=== PATIENT | male | born 1955 | race Caucasian/White ===

== ENCOUNTER 2017-09-27 08:01 | Emergency (ER) | payer OTHER ==
[~2017-09-27] VITALS: Ht 167.6 cm; Wt 94.0 kg
[2017-09-27] MEDS ORDERED: METF500T4 PO (08:32)
[2017-09-27] MEDS ORDERED: LOSA50TA6 PO (08:32)
[2017-09-27] MEDS ORDERED: GLIM4TAB2 PO (08:32)
[2017-09-27] MEDS ORDERED: ATOR40TA78 PO (08:32)
[2017-09-27] MEDS ORDERED: PHENYLEPHRINE NASAL 1%, 15ML SPRAY ONE (08:37)
[2017-09-27] MEDS ORDERED: LIDOCAINE-MPF 1%, 5ML ONE (08:37)
[2017-09-27 09:57] VITALS: BP 132/97
== END 2017-09-27 10:00 | disposition home or self-care (01) ==
LOC: ED 09:00
DX: R04.0 Epistaxis (principal); Z87.891 Personal history of nicotine dependence
CPT/HCPCS: 30901; 99284

== ENCOUNTER 2018-07-13 07:49 | Inpatient (IN) | payer OTHER ==
[~2018-07-13] VITALS: Ht 167.6 cm; Wt 98.0 kg
[~2018-07-13 07:49] MED LIST: ATOR40TA78 PO; GLIM4TAB2 PO; LOSA50TA14 PO; METF500T17 PO
--- NOTE | 2018-07-13 07:58 | NUR ---
PT PRESENTED TO ED D/T LLQ ABD PAIN SINCE TUESDAY. HX OF KIDNEY STONES. PT DENIES PAINFUL URINATION AT THIS TIME. DENIES N/V/D.
[2018-07-13 08:25] LABS: MICROSCOPIC AUTO
[2018-07-13 08:27] LABS: CULTURE INDICATED? NO
--- NOTE | 2018-07-13 08:28 | NUR ---
PT BEING TRANSPORED TO CT SCAN.
[2018-07-13 08:29] LABS: BASOPHILS # (AUTO) 0.03 x10^3/uL (0-0.1); BASOPHILS % (AUTO) 0 % (0-1); EOSINOPHILS # (AUTO) 0.19 x10^3/uL (0-0.4); EOSINOPHILS % (AUTO) 2 % (1-7); LYMPHOCYTES # (AUTO) 1.65 x10^3/uL (1-3.4); LYMPHOCYTES % (AUTO) 20 % (22-44); MD NO; MEAN CORPUSCULAR HEMOGLOBIN 29.9 pg (27.5-34.5); MEAN CORPUSCULAR HGB CONC 33.7 g/dL (33.2-36.2); MEAN CORPUSCULAR VOLUME 88.8 fL (81-97); MEAN PLATELET VOLUME 8.2 fL (7.4-10.4); MONOCYTES % (AUTO) 7 % (2-9); NEUTROPHILS # (AUTO) 5.82 x10^3/uL (1.8-6.8); NEUTROPHILS % (AUTO) 70 % (42-75); PLATELET COUNT 308 x10^3/uL (130-400); RED BLOOD COUNT 5.62 x10^6/uL (4.38-5.82); RED CELL DISTRIBUTION WIDTH 13.7 % (9.4-14.8)
[2018-07-13 08:36] LABS: ALBUMIN 4.5 g/dL (3.4-5.0); ANION GAP 7 mmol/L (5-15); CALCIUM 9.1 mg/dL (8.5-10.1); CHLORIDE 108 mmol/L (98-107); CREATININE 1.06 mg/dL (0.7-1.3)
--- NOTE | 2018-07-13 09:18 | NUR ---
PT RESTING ON [facility]. CT RESULTS PENDING. NO NEEDS AT THIS TIME.
--- NOTE | 2018-07-13 09:49 | NUR ---
REPORT TO ERVIN PORTER TO ASSUME PRIMARY CARE OF PT.
--- NOTE | 2018-07-13 10:05 | NUR ---
PT TO BE ADMITTED. VSS. 3 P'S ADDRESSED. PT COMFORTABLE NOW.
[2018-07-13] MEDS ORDERED: CEFOTETAN PMX 1GM/50ML 50 ML ONE ×2 (10:14→10:28)
[2018-07-13] MEDS ORDERED: ONDANSETRON 2MG/ML, 2ML ONE ×3 (10:24→12:53)
[2018-07-13] MEDS ORDERED: HYDROmorphone 1 MG/ML, 1ML ONE (10:24)
[2018-07-13] MEDS ORDERED: MORPHINE SULFATE 4 MG/ML, 1ML ONE (10:28)
[2018-07-13] MEDS ORDERED: MORPHINE SULFATE 4 MG/ML, 1ML IVPush PRN ×2 (10:30→12:00)
[2018-07-13] MEDS ORDERED: ONDANSETRON 2MG/ML, 2ML IVPush ONE (10:30)
[2018-07-13] MEDS ORDERED: SODIUM CHLORIDE FLUSH 10ML SYR IVF ONE (10:30)
[2018-07-13] MEDS ORDERED: CEFOTETAN PMX 2GM/50ML 50 ML IV ONE (10:30)
[2018-07-13] MEDS ORDERED: BUPIVACAINE/PF-EPI 0.5% 1:200K ONE (10:36)
[2018-07-13] MEDS ORDERED: BUPIVACAINE/PF 0.25% ONE (10:36)
[2018-07-13] MEDS ORDERED: EPINEPHRINE 1 MG/ML, 1ML ONE (10:36)
[2018-07-13] MEDS ORDERED: SODIUM CHLORIDE 0.9% 1,000 ML IV SCH (10:47)
[2018-07-13] MEDS ORDERED: KETOROLAC 30 MG/1 ML IV PRN ×2 (11:00→18:00)
[2018-07-13] MEDS ORDERED: morphine SULFATE 10 MG/ML, 1ML IVPush PRN (11:00)
[2018-07-13] MEDS ORDERED: ACETAMINOPHEN 325 MG TABLET PO PRN ×2 (11:00→12:00)
[2018-07-13] MEDS ORDERED: FENTANYL PF 250 MCG/5ML ONE (11:00)
[2018-07-13] MEDS ORDERED: ONDANSETRON ODT 4 MG PO PRN (11:00)
[2018-07-13] MEDS ORDERED: MIDAZOLAM 1 MG/ML, 2ML ONE (11:00)
[2018-07-13] MEDS ORDERED: ONDANSETRON 2MG/ML, 2ML IVPush PRN (11:00)
[2018-07-13] MEDS ORDERED: DEXAMETHASONE 4 MG/ML, 5ML ONE (11:10)
[2018-07-13] MEDS ORDERED: FENTANYL PF 100 MCG/2ML ONE (11:43)
[2018-07-13] MEDS ORDERED: KETOROLAC 30 MG/1 ML ONE (11:58)
[2018-07-13] MEDS ORDERED: ALBUTEROL SULFATE 2.5 MG/3 ML NPPB PRN (12:00)
[2018-07-13] MEDS ORDERED: HALOPERIDOL 5 MG/ML IV PRN (12:00)
[2018-07-13] MEDS ORDERED: LABETALOL 5MG/ML, 20ML IV PRN (12:00)
[2018-07-13] MEDS ORDERED: hydrALAzine 20 MG/ML, 1ML IV PRN (12:00)
[2018-07-13] MEDS ORDERED: EPHEDRINE 50 MG/ML, 1ML IVPush PRN (12:00)
[2018-07-13] MEDS ORDERED: HYDROmorphone 2 MG/ML, 1ML IVPush PRN (12:00)
[2018-07-13] MEDS ORDERED: MEPERIDINE/PF 25MG/0.5ML IVPush PRN (12:00)
[2018-07-13] MEDS ORDERED: DIAZEPAM 5 MG/ML, 2ML IVPush PRN (12:00)
[2018-07-13] MEDS ORDERED: OXYcodone 5 MG/5 ML ORAL.SOL UDC PO PRN (12:00)
[2018-07-13] MEDS ORDERED: PROMETHAZINE 12.5 MG SUPP PR PRN (12:00)
[2018-07-13] MEDS ORDERED: PROMETHAZINE 25 MG/ML, 1ML IV PRN (12:00)
[2018-07-13] MEDS ORDERED: MIDAZOLAM 1 MG/ML, 2ML IV PRN (12:00)
[2018-07-13] MEDS ORDERED: ONDANSETRON 2MG/ML, 2ML IV PRN ×2 (12:00→15:30)
[2018-07-13] MEDS ORDERED: FENTANYL PF 100 MCG/2ML IV PRN (12:00)
[2018-07-13] MEDS ORDERED: ONDANSETRON ODT 8 MG PO PRN (12:00)
[2018-07-13] MEDS ORDERED: NEOSTIGMINE 1 MG/ML, 10ML ONE (12:01)
[2018-07-13] MEDS ORDERED: PROPOFOL 10 MG/ML, 20ML ONE (12:01)
[2018-07-13] MEDS ORDERED: ROCURONIUM 10MG/ML,5ML ONE (12:01)
[2018-07-13] MEDS ORDERED: GLYCOPYRROLATE 0.4 MG/2 ML, 2ML ONE (12:01)
[2018-07-13] MEDS ORDERED: SUCCINYLCHOLINE 20 MG/ML, 10ML ONE (12:01)
[2018-07-13] MEDS ORDERED: morphine SULFATE 10 MG/ML, 1ML IV PRN (15:30)
[2018-07-13] MEDS ORDERED: POTASSIUM CHLORIDE 20 MEQ in D5%-0.45% NACL 1,000 ML IV SCH (15:30)
[2018-07-13] MEDS ORDERED: DIPHENHYDRAMINE 50 MG/ML, 1ML IV PRN (15:30)
[2018-07-13] MEDS ORDERED: HEPARIN 5,000 UNITS/ML, 1ML SQ SCH (15:30)
[2018-07-13] MEDS ORDERED: DIPHENHYDRAMINE 25 MG CAPSULE PO PRN (15:30)
[2018-07-13] MEDS ORDERED: OXYcodone/APAP 5/325MG TABLET PO PRN (15:30)
[2018-07-13 20:00] VITALS: BP 113/76
[2018-07-13] MEDS: SODIUM CHLORIDE FLUSH 10ML SYR IVF SCH (20:49)
[2018-07-13] MEDS ORDERED: ATORVASTATIN 40 MG TABLET PO SCH (21:00)
[2018-07-14 02:23] VITALS: BP 114/70
[2018-07-14 04:10] VITALS: BP 109/68
[2018-07-14 05:08] LABS: MEAN CORPUSCULAR HEMOGLOBIN 30.7 pg (27.5-34.5); MEAN CORPUSCULAR HGB CONC 34.1 g/dL (33.2-36.2); MEAN CORPUSCULAR VOLUME 90.1 fL (81-97); MEAN PLATELET VOLUME 8.3 fL (7.4-10.4); PLATELET COUNT 280 x10^3/uL (130-400); RED BLOOD COUNT 4.94 x10^6/uL (4.38-5.82); RED CELL DISTRIBUTION WIDTH 13.9 % (9.4-14.8)
[2018-07-14 05:12] LABS: ALBUMIN 3.6 g/dL (3.4-5.0); ANION GAP 5 mmol/L (5-15); CALCIUM 8.1 mg/dL (8.5-10.1); CHLORIDE 107 mmol/L (98-107)
[2018-07-14 05:16] LABS: ALANINE AMINOTRANSFERASE 44 U/L (12-78); ALKALINE PHOSPHATASE 57 U/L (45-117); BILIRUBIN,TOTAL 1.3 mg/dL (0.2-1.0); TOTAL PROTEIN 6.7 g/dL (6.4-8.2)
[2018-07-14 06:01] LABS: BASOPHILS # (AUTO) 0.03 x10^3/uL (0-0.1); BASOPHILS % (AUTO) 0 % (0-1); EOSINOPHILS # (AUTO) 0.02 x10^3/uL (0-0.4); EOSINOPHILS % (AUTO) 0 % (1-7); LYMPHOCYTES # (AUTO) 1.45 x10^3/uL (1-3.4); LYMPHOCYTES % (AUTO) 11 % (22-44); MD SCAN; MONOCYTES # (AUTO) 1.12 x10^3/uL (0.2-0.8); MONOCYTES % (AUTO) 8 % (2-9); NEUTROPHILS % (AUTO) 81 % (42-75)
[2018-07-14 08:23] VITALS: BP 113/71
[2018-07-14] MEDS: SODIUM CHLORIDE FLUSH 10ML SYR IVF SCH (08:50)
[2018-07-14] MEDS ORDERED: ENOXAPARIN 40 MG/0.4 ML SQ SCH (09:00)
[2018-07-14] MEDS ORDERED: LOSARTAN 50MG TABLET PO SCH (09:00)
[2018-07-14] MEDS ORDERED: SODIUM CHLORIDE 0.9%, 250ML IVBOLUS ONE (10:00)
[2018-07-14] MEDS ORDERED: POLY17PO5 PO (11:15)
[2018-07-14] MEDS ORDERED: OXYC-302 PO (11:15)
== END 2018-07-14 11:41 | disposition home or self-care (01) | DRG 354 ==
LOC: ED 08:19 → EDIP 10:01 → 4NOR 14:49 → DCLOUNGE 07-14 11:30
PROVIDERS: ADMIT Internal Medicine; ATTEND Internal Medicine
PROC: 8E0W4CZ Robotic Assisted Procedure of Trunk Region, Percutaneous Endoscopic Approach (ICD-10-PCS; 2018-07-13)
PROC: 0WUF4JZ Supplement Abdominal Wall with Synthetic Substitute, Percutaneous Endoscopic Approach (ICD-10-PCS; principal; 2018-07-13 11:00)
DX: K43.6 Other and unspecified ventral hernia with obstruction, without gangrene (principal); K40.30 Unilateral inguinal hernia, with obstruction, without gangrene, not specified as recurrent; E11.9 Type 2 diabetes mellitus without complications; E78.5 Hyperlipidemia, unspecified; E66.9 Obesity, unspecified; I10 Essential (primary) hypertension; G47.00 Insomnia, unspecified; Z80.3 Family history of malignant neoplasm of breast; Z83.3 Family history of diabetes mellitus; Z87.442 Personal history of urinary calculi; Z68.34 Body mass index [BMI] 34.0-34.9, adult
CPT/HCPCS: 36415; 74176; 80048; 80053; 81001; 82040; 85025; 93005; G0378; J0171; J1100; J1650; J1885; J2250; J2405; J2704; J2710; J3010; J3480; J3490; C1781; J0330